=== PATIENT | female | born 1965 | race Caucasian/White ===

== ENCOUNTER 2021-10-29 06:34 | Day surgery (SDC) | payer MEDICAID, SELFPAY ==
--- NOTE | 2021-10-29 06:48 | W.ANESPRE ---
General Info Date of Service Date Performed: 10/29/21 Height: 5 ft 2 in Weight: 43.091 kg Body Mass Index (BMI): 17.4 Surgical Procedure: Operation Date: 10/29/21 08:25 Proposed Procedure Side Surgeon p Cataract Extraction with IOL Implant Left Harpal Baltazar MD Meds Allergies and Home Medications Allergies Allergy/AdvReac Type Severity Reaction Status Date / Time ether Allergy Severe Other (See Verified 10/29/21 07:17 Comment) Anesthesia gases Allergy Severe Uncoded 10/28/21 08:53 Home Medication Medication Instructions Recorded albuterol sulfate 2.5 mg/3 mL 2.5 mg inhalation QID PRN 10/27/21 (0.083 %) solution for nebulization albuterol sulfate 90 mcg/actuation 2 puff inhalation Q6H 10/27/21 aerosol inhaler budesonide-formoterol HFA 160 2 puff inhalation BID 10/27/21 mcg-4.5 mcg/actuation aerosol inhaler (Symbicort) ipratropium 0.5 mg-albuterol 3 mg 2 ml inhalation QID PRN 10/27/21 (2.5 mg base)/3 mL nebulization soln lisinopril 20 mg tablet 20 mg PO DAILY 10/27/21 magnesium 200 mg tablet 400 mg PO DAILY 10/27/21 multivitamin 1 tab PO DAILY 10/27/21 sodium chloride 1,000 mg soluble 1,000 mg PO DAILY 10/27/21 tablet loratadine 10 mg tablet 1 tab PO DAILY 10/28/21 Current Visit Medications: Current Medications Generic Name Dose Route Start Last Admin Trade Name Freq PRN Reason Stop Dose Admin Acetaminophen 1,000 mg 10/29/21 06:00 Acetaminophen 500 Mg Tab PO Q4H PRN PRN Miscellaneous Medication 0 ml 10/29/21 06:00 Prednisolone 1%, Moxifloxacin 0.5%, Nepafenac 0.1% 5ml Btl OS DIRECTED [facility] Miscellaneous Medication 0 ml 10/29/21 06:00 Tropicam./Phenyleph. (1/2.5%) 5 Ml Btl OS DIRECTED [facility] Tetracaine HCl 0 ml 10/29/21 06:00 Tetracaine 0.5% 4 Ml Btl OS DIRECTED [facility] Medical History Medical History (Updated 10/29/21 @ 07:15 by Dominguez Gardiner) Alcohol abuse Anxiety Chronic tension headache COPD (chronic obstructive pulmonary disease) Emphysema lung HLD (hyperlipidemia) HTN (hypertension) Hypochloremia Hypomagnesemia Hyponatremia Malnutrition Surgical History Surgical History (Updated 10/29/21 @ 07:16 by Dominguez Gardiner) History of surgery on right wrist Tobacco Smoking/Tobacco Use Status: Current every day Tobacco Type: cigarettes Alcohol Alcohol Intake: current Alcohol intake frequency: 3 or more drinks per day Substance Use Substance use: Never Substance use type: does not use Vital Signs and Lab Results Lab Results Blood Type / Crossmatch: No Data to Display Complete Blood Count: No Data to Display Complete Metabolic Panel: No Data to Display Liver Function Panel: No Data to Display Coagulation Panel: No Data to Display Cardiac Panel: No Data to Display Arterial Blood Gas: No Data to Display Venous Blood Gas: No Data to Display Pancreas Panel: No Data to Display Thyroid Panel: No Data to Display Infectious Disease: No Data to Display Blood Cultures: No Data to Display Toxicology Panel: No Data to Display Anesthesia Assessment and Plan Anesthesia History Personal History: No History of Anesthesia Complications Family History: No Family History of Anesthesia Complications Exercise Tolerance Exercise Tolerance: Metabolic Equivalents>4 Pertinent Negatives Pertinent Negatives: No Symptoms of GERD, No Major Cardiovascular Symptoms or Complaints and No History of CVA/TIA Cardiac & Pulmonary Exam Cardiac Exam: Normal S1/S2 Heart Sounds Pulmonary Exam: Clear Bilateral Breath Sounds and Active Dry Cough (baseline) Implantable Cardiac Device Does patient have a Pacemaker or an ICD?: No Airway Exam Known Difficult Airway: No Mallampati Class: 2 Mouth Opening: Narrow (< 3cm) Thyromental Distance: Greater than 3 cm Neck Range of Motion: Full ROM Neck Circumference: Normal Teeth Condition: Normal Dentition ASA Classification ASA Score: ASA 2 Emergency Case?: No NPO Status NPO Status: NPO Clears >2 hours, Solids >8 hours Anesthesia Plan Resuscitation Status: Full Code Anesthesia Technique: MAC Anesthesia Airway Planned: Natural Airway Monitors Used: Standard Monitors
[2021-10-29 07:20] VITALS: BMI 17.4
[2021-10-29 07:21] VITALS: BP 178/105; PULSE 88; RESP 16; TEMP 36.9; O2SAT 97
[2021-10-29] MEDS: Tropicam./Phenyleph. (1/2.5%) 5 ML BTL OS ×3 (07:31→07:41)
[2021-10-29] MEDS: Balanced Salt Soln.-PLUS 500 ML BAG (08:42)
[2021-10-29] MEDS: Lidocaine 1% Pres-Free 5 ML VIAL (08:43)
[2021-10-29] MEDS: Lidocaine 2% Jelly 6 ML SYR (08:44)
[2021-10-29] MEDS: Povidone-Iodine Ophth 30 ML BTL (08:46)
[2021-10-29] MEDS: Tetracaine 0.5% 4 ML BTL OS (08:47)
[2021-10-29 08:50] VITALS: BP 172/112; PULSE 100; RESP 16; TEMP 36.7; O2SAT 96
--- NOTE | 2021-10-29 08:52 | W.PM.DSUDISC ---
Discharge Plan Disposition Patient Disposition: HOME Condition: Good Discharge Details Attending Provider: Harpal Baltazar Primary Care Provider: Yahaira Rutherford Home Meds and New Rx's Prescriptions: No Action multivitamin Tablet 1 tab PO DAILY ipratropium-albuterol 0.5 mg-3 mg(2.5 mg base)/3 mL Solution For Nebulization 2 ml INHALATION QID PRN albuterol sulfate 2.5 mg /3 mL (0.083 %) Solution For Nebulization 2.5 mg inhalation QID PRN lisinopril 20 mg Tablet 20 mg PO DAILY albuterol sulfate 90 mcg/actuation Hfa Aerosol Inhaler 2 puff INHALATION Q6H magnesium 200 mg Tablet 400 mg PO DAILY sodium chloride 1,000 mg Tablet,Soluble 1,000 mg PO DAILY budesonide-formoterol [Symbicort] 160-4.5 mcg/actuation Hfa Aerosol Inhaler 2 puff INHALATION BID loratadine 10 mg tablet 1 tab PO DAILY Discharge Instructions Stand Alone Forms: Post-op Topical Cataract, Yasir Alvarado (DSU) Discharge Orders Discharge Orders: Discharge Order (Routine); Ordered 10/29/21 Ordered By: Harpal Baltazar DS: Diagnosis Discharge Diagnosis (1) Cortical cataract of left eye: Status: Resolved (2) Nuclear sclerotic cataract of left eye: Status: Resolved
--- NOTE | 2021-10-29 08:54 | ROE_ITS ---
Date of service: 10/29/21 Time of Service: 08:54 Operative Note Operative Note DATE OF PROCEDURE: 10/29/21 PRE-OP DIAGNOSIS: Nuclear/cortical cataract, left eye POST-OP DIAGNOSIS: same PROCEDURE: Cataract extraction using phacoemulsification with intraocular lens implant, left eye SURGEON: Harpal Baltazar ANESTHESIA TYPE: Local By Surgeon and MAC Refer to Anesthesia Record PATHOLOGY: none sent COMPLICATIONS: None Patient was transported to: same day Patient's condition: stable Implants: Luis Fernando Clareon [id number] Indications: Progressive decreased vision due to cataract, left eye Procedure Description: CATARACT SURGERY OPERATIVE REPORT PREOPERATIVE DIAGNOSIS: Nuclear/cortical cataract, left eye POSTOPERATIVE DIAGNOSIS: Same OPERATION: Cataract extraction using phacoemulsification with posterior chamber intraocular lens implant, left eye. IOL: IOL Electronics Technician/Model: Luis Fernando Clareon [id number] IOL Power: + 19.5 diopters IOL Serial Number: [id number] Optic Diameter: 6.0mm Haptic/Overall Diameter: 13.0mm PHACO INFO: Luis FernandoCopanionurion Vision System with OZil and Active Fluidics Cumulative Dispersed Energy (CDE): 6.18 seconds SURGEON: Harpal Baltazar MD, ELIECER ANESTHESIA: Monitored Anesthesia Care (MAC), with local sub-tenon's anesthetic infiltration COMPLICATIONS: None SPECIMENS: None INDICATIONS FOR PROCEDURE: The patient is a 55-year-old lady with history of diminished visual acuity in her left eye secondary to the development of nuclear and cortical cataract. She is significantly symptomatic that she desires cataract surgery and attempt to improve and maximize her vision. She does have a moderate amount of astigmatism and realizes that postoperative visual acuity will be limited by the presence of her pre-existing astigmatic state. PROCEDURE: The correct surgical eye was identified and marked as the left eye and the pupil was dilated in the preoperative area using mydriatics and cycloplegics. The dilated pupil size was 6.0 mm. Oral sedation was administered in the form of an Imprimis MKO Melt (midazolam 3mg/ketamine 25mg/ondansetron 2mg). The patient was brought to the operating room where cardiopulmonary monitoring was instituted and surgical time-out was performed, confirming the correct operative eye and IOL power. Topical anesthesia was administered and ophthalmic povidone-iodine 5% was instilled into the conjunctival fornices. Lidocaine gel was applied to the cornea and the gladys-ocular area was prepped with Betadine 10% solution and draped in the usual sterile fashion for intraocular surgery, including an aperture drape. A Tegaderm transparent film dressing was cut in half and used to cover the lashes and lid margins. Care was taken to sequester the lashes and lid margins under the Tegaderm dressing. A lid speculum was placed between the lids of the operative eye and the Luis Fernando [employer] operating microscope was maneuvered into position. Isreal scissors were then used to make a conjunctival buttonhole approximately 6mm posterior to the limbus in the inferonasal quadrant. Blunt dissection was carried out to expose bare sclera, and a blunt-tipped sub-tenon?s anesthesia cannula was introduced and passed posteriorly along the globe where non- preserved plain lidocaine was injected into posterior sub-Tenon?s space. A sideport knife was used to make a paracentesis port superior/superiortemporally. Intraocular phenylephrine/lidocaine was injected into the anterior chamber. The anterior chamber was then filled with viscoelastic. A 2.4mm keratome knife was used to create a half-thickness groove at the limbus and then to construct a three-plane near-clear corneal tunnel extending 2.0mm into clear cornea in the temporal position. . A flap was raised on the anterior capsule and capsulorhexis forceps were used to complete a continuous curvilinear capsulorhexis of 5.0 mm. Balanced salt solution was then used to perform cortical cleaving hydrodissection and nuclear hydrodelineation until the lens could be freely rotated within the capsular bag. The lens nucleus was then disassembled and removed within the capsular bag and iris plane using phacoemulsification. Residual cortical material was removed using the 45-degree angled silicone I/A tip with 0.3mm port. The posterior capsule was carefully polished to remove as much residual lens epithelial cells as safely possible. The capsular bag was then inflated and the anterior chamber deepened with viscoelastic. The lens implant described above was inserted into the capsular bag using the Luis Fernando Autonome Injector. A Kuglen hook was used to dial the IOL into position. Residual viscoelastic was then removed first from posterior to the IOL, then from the anterior chamber using the I/A handpiece. The lens implant was noted to center nicely within the capsular bag. The incisions were stromally hydrated, and the anterior chamber was reformed using BSS. Then 0.5cc of moxifloxacin 1.0mg/ml were injected into the capsular bag and anterior chamber. The incisions were checked with a Weck spear and found to be secure. Several drops of ophthalmic povidone-iodine 5% were then applied to the eye followed by two drops of Imprimis combination prednisolone/moxifloxacin/nepafenac solution. The drapes were removed and a clear plastic protective eye shield was placed over the eye. The patient was then returned to Same Day Surgery in stable condition.
[2021-10-29 09:20] VITALS: BP 165/103; PULSE 85; RESP 15; TEMP 36.7; O2SAT 98
--- NOTE | 2021-10-29 10:17 | W.ANESPOSTOP ---
Postoperative Evaluation Date, Time and Location Date Performed: 10/29/21 Time Performed: 10:17 Patient Location: Day Surgery Unit Vital Signs Most Recent Imported Vital Signs: Most Recent Vital Signs Temp Pulse Resp BP Pulse Ox 36.7 C 85 15 165/103 H 98 10/29/21 09:20 10/29/21 09:20 10/29/21 09:20 10/29/21 09:20 10/29/21 09:20 Pain Score Most Recent Pain Score: Most Recent Pain Score Pain Level 0 10/29/21 09:20 Assessment Mental Status: Awake (Alert & Oriented to Patient Baseline) Airway and Respiratory Function: Patent airway with normal (patient baseline) respiratory exam Cardiovascular Function: Hemodynamically Stable Hydration Status: Adequately Hydrated Nausea & Vomiting: No Nausea or Vomiting Pain: Pt. Denies Any Pain Peripheral Nerve Block: Other (Local by Dr. Baltazar) Postoperative Comments:: Patient seen earlier today. Denied questions and just wanted to go home. Recommended her to take her usual morning medications at home.
== END 2021-10-29 09:22 | disposition home or self-care (01) ==
PROVIDERS: PCP Nurse Practitioner; Visit Provider Ophthalmology
PROC: (CPT 66984; principal; 2021-10-29 08:15)
DX: H25.12 Age-related nuclear cataract, left eye (principal); J44.9 Chronic obstructive pulmonary disease, unspecified; I10 Essential (primary) hypertension
CPT/HCPCS: 66984; V2632

== ENCOUNTER 2021-11-12 06:19 | Day surgery (SDC) | payer MEDICAID, SELFPAY ==
[2021-11-12 06:25] VITALS: BP 191/105; PULSE 84; RESP 20; TEMP 36.7; O2SAT 97
[2021-11-12] MEDS: Tropicam./Phenyleph. (1/2.5%) 5 ML BTL OD ×3 (06:33→06:44)
--- NOTE | 2021-11-12 07:03 | W.ANESPRE ---
General Info Date of Service Date Performed: 11/12/21 Height: 5 ft 2 in Weight: 41 kg Body Mass Index (BMI): 16.5 Surgical Procedure: Operation Date: 11/12/21 07:40 Proposed Procedure Side Surgeon p Cataract Extraction with IOL Implant Right Harpal Baltazar MD Meds Allergies and Home Medications Allergies Allergy/AdvReac Type Severity Reaction Status Date / Time ether Allergy Severe Other (See Verified 11/11/21 13:55 Comment) Anesthesia gases Allergy Severe Uncoded 11/11/21 13:55 Home Medication Medication Instructions Recorded albuterol sulfate 2.5 mg/3 mL 2.5 mg inhalation QID PRN 10/27/21 (0.083 %) solution for nebulization albuterol sulfate 90 mcg/actuation 2 puff inhalation Q6H 10/27/21 aerosol inhaler budesonide-formoterol HFA 160 2 puff inhalation BID 10/27/21 mcg-4.5 mcg/actuation aerosol inhaler (Symbicort) ipratropium 0.5 mg-albuterol 3 mg 2 ml inhalation QID PRN 10/27/21 (2.5 mg base)/3 mL nebulization soln lisinopril 20 mg tablet 20 mg PO DAILY 10/27/21 magnesium 200 mg tablet 400 mg PO DAILY 10/27/21 multivitamin 1 tab PO DAILY 10/27/21 sodium chloride 1,000 mg soluble 1,000 mg PO DAILY 10/27/21 tablet loratadine 10 mg tablet 1 tab PO DAILY 10/28/21 Current Visit Medications: Current Medications Generic Name Dose Route Start Last Admin Trade Name Freq PRN Reason Stop Dose Admin Acetaminophen 1,000 mg 11/12/21 06:00 Acetaminophen 500 Mg Tab PO Q4H PRN PRN Miscellaneous Medication 0 ml 11/12/21 06:00 Prednisolone 1%, Moxifloxacin 0.5%, Nepafenac 0.1% 5ml Btl OD DIRECTED [facility] Miscellaneous Medication 0 ml 11/12/21 06:00 11/12/21 06:44 Tropicam./Phenyleph. (1/2.5%) 5 Ml Btl OD 1 drp DIRECTED [facility] Administration Tetracaine HCl 0 ml 11/12/21 06:00 Tetracaine 0.5% 4 Ml Btl OD DIRECTED [facility] PFSH Active Problems Active Problems: Problem Status Onset Code Cortical cataract of left eye H26.9 Nuclear sclerotic cataract of left eye H25.12 Medical History Medical History Alcohol abuse Anxiety Chronic tension headache COPD (chronic obstructive pulmonary disease) Emphysema lung HLD (hyperlipidemia) HTN (hypertension) Hypochloremia Hypomagnesemia Hyponatremia Malnutrition Surgical History Surgical History (Updated 11/12/21 @ 06:34 by Jojo Oscar) History of cataract surgery History of surgery on right wrist Tobacco Smoking/Tobacco Use Status: Current every day Tobacco Type: cigarettes Alcohol Alcohol Intake: current Alcohol intake frequency: 3 or more drinks per day Substance Use Substance use: Never Substance use type: does not use Vital Signs and Lab Results Vital Signs Most Recent Vital Signs in EMR: Most Recent Vital Signs Temp Pulse Resp BP Pulse Ox 36.7 C 84 20 191/105 H 97 11/12/21 06:25 11/12/21 06:25 11/12/21 06:25 11/12/21 06:25 11/12/21 06:25 Lab Results Blood Type / Crossmatch: No Data to Display Complete Blood Count: No Data to Display Complete Metabolic Panel: No Data to Display Liver Function Panel: No Data to Display Coagulation Panel: No Data to Display Cardiac Panel: No Data to Display Arterial Blood Gas: No Data to Display Venous Blood Gas: No Data to Display Pancreas Panel: No Data to Display Thyroid Panel: No Data to Display Infectious Disease: No Data to Display Blood Cultures: No Data to Display Toxicology Panel: No Data to Display Anesthesia Assessment and Plan Anesthesia History Personal History: No History of Anesthesia Complications Family History: No Family History of Anesthesia Complications Exercise Tolerance Exercise Tolerance: Metabolic Equivalents>4 Pertinent Negatives Pertinent Negatives: No Symptoms of GERD and No Major Pulmonary Symptoms or Complaints Cardiac & Pulmonary Exam Cardiac Exam: Normal S1/S2 Heart Sounds Pulmonary Exam: Clear Bilateral Breath Sounds Implantable Cardiac Device Does patient have a Pacemaker or an ICD?: No Airway Exam Known Difficult Airway: No Mallampati Class: 2 Mouth Opening: Narrow (< 3cm) Thyromental Distance: Greater than 3 cm Neck Range of Motion: Full ROM Neck Circumference: Normal Teeth Condition: Normal Dentition ASA Classification ASA Score: ASA 3 Emergency Case?: No NPO Status NPO Status: NPO Clears >2 hours, Solids >8 hours Anesthesia Plan Resuscitation Status: Full Code Anesthesia Technique: MAC Anesthesia Airway Planned: Natural Airway Monitors Used: Standard Monitors
[2021-11-12 07:07] VITALS: BMI 16.5
[2021-11-12] MEDS: Balanced Salt Soln.-PLUS 500 ML BAG (07:35)
[2021-11-12] MEDS: Povidone-Iodine Ophth 30 ML BTL (07:37)
[2021-11-12] MEDS: Duovisc Viscoelastic System EACH 1 EACH (07:37)
[2021-11-12] MEDS: Lidocaine 2% Jelly 6 ML SYR (07:38)
[2021-11-12] MEDS: Tetracaine 0.5% 4 ML BTL OD (07:39)
[2021-11-12 07:55] VITALS: BP 164/105; PULSE 91; RESP 18; TEMP 37; O2SAT 98
--- NOTE | 2021-11-12 07:55 | W.PM.DSUDISC ---
Discharge Plan Disposition Patient Disposition: HOME Condition: Good Discharge Details Attending Provider: Harpal Baltazar Primary Care Provider: Yahaira Rutherford Home Meds and New Rx's Prescriptions: No Action multivitamin Tablet 1 tab PO DAILY ipratropium-albuterol 0.5 mg-3 mg(2.5 mg base)/3 mL Solution For Nebulization 2 ml INHALATION QID PRN albuterol sulfate 2.5 mg /3 mL (0.083 %) Solution For Nebulization 2.5 mg inhalation QID PRN lisinopril 20 mg Tablet 20 mg PO DAILY albuterol sulfate 90 mcg/actuation Hfa Aerosol Inhaler 2 puff INHALATION Q6H magnesium 200 mg Tablet 400 mg PO DAILY sodium chloride 1,000 mg Tablet,Soluble 1,000 mg PO DAILY budesonide-formoterol [Symbicort] 160-4.5 mcg/actuation Hfa Aerosol Inhaler 2 puff INHALATION BID loratadine 10 mg tablet 1 tab PO DAILY Discharge Instructions Stand Alone Forms: Post-op Topical Cataract, Yasir Alvarado (DSU) Discharge Orders Discharge Orders: Discharge Order (Routine); Ordered 11/12/21 Ordered By: Harpal Baltazar DS: Diagnosis Discharge Diagnosis (1) Cortical cataract of right eye: Status: Resolved (2) Nuclear sclerotic cataract of right eye: Status: Resolved
--- NOTE | 2021-11-12 07:56 | W.PM.OP ---
Date of service: 11/12/21 Time of Service: 07:56 Operative Note Operative Note DATE OF PROCEDURE: 11/12/21 PRE-OP DIAGNOSIS: Nuclear/cortical cataract, right eye POST-OP DIAGNOSIS: same PROCEDURE: Cataract extraction using phacoemulsification with intraocular lens implant, right eye SURGEON: Harpal Baltazar ANESTHESIA TYPE: Local By Surgeon and MAC Refer to Anesthesia Record ESTIMATED BLOOD LOSS: 0 PATHOLOGY: none sent COMPLICATIONS: None Patient was transported to: same day Patient's condition: stable Implants: Luis Fernando Clareon [id number] Indications: Progressive decreased vision due to cataract, right eye Procedure Description: CATARACT SURGERY OPERATIVE REPORT PREOPERATIVE DIAGNOSIS: Nuclear/cortical cataract, right eye POSTOPERATIVE DIAGNOSIS: Same OPERATION: Cataract extraction using phacoemulsification with posterior chamber intraocular lens implant, right eye. IOL: IOL Medical Dosimetrist/Model: Luis Fernando Clareon [id number] IOL Power: + 19.0 diopters IOL Serial Number: [id number] Optic Diameter: 6.0mm Haptic/Overall Diameter: 13.0mm PHACO INFO: Luis FernandoGroove Biopharmaurion Vision System with OZil and Active Fluidics Cumulative Dispersed Energy (CDE): 5.55 seconds SURGEON: Harpal Baltazar MD, ELIECER ANESTHESIA: Monitored Anesthesia Care (MAC), with local sub-tenon's anesthetic infiltration COMPLICATIONS: None SPECIMENS: None INDICATIONS FOR PROCEDURE: Patient is a 55-year-old lady with history of diminished visual acuity in her right eye secondary to development of nuclear/cortical cataract. She is significantly symptomatic that she desires cataract surgery and attempt to improve and maximize her vision. She has already undergone cataract surgery in the left eye and is doing well postoperatively. She now presents for cataract surgery in the right eye. PROCEDURE: The correct surgical eye was identified and marked as the right eye and the pupil was dilated in the preoperative area using mydriatics and cycloplegics. The dilated pupil size was [] mm. Oral sedation was administered in the form of an Imprimis MKO Melt (midazolam 3mg/ketamine 25mg/ondansetron 2mg). The patient was brought to the operating room where cardiopulmonary monitoring was instituted and surgical time-out was performed, confirming the correct operative eye and IOL power. Topical anesthesia was administered and ophthalmic povidone-iodine 5% was instilled into the conjunctival fornices. Lidocaine gel was applied to the cornea and the gladys-ocular area was prepped with Betadine 10% solution and draped in the usual sterile fashion for intraocular surgery, including an aperture drape. A Tegaderm transparent film dressing was cut in half and used to cover the lashes and lid margins. Care was taken to sequester the lashes and lid margins under the Tegaderm dressing. A lid speculum was placed between the lids of the operative eye and the Eugenie-Melo operating microscope was maneuvered into position. Isreal scissors were then used to make a conjunctival buttonhole approximately 6mm posterior to the limbus in the inferonasal quadrant. Blunt dissection was carried out to expose bare sclera, and a blunt-tipped sub-tenon?s anesthesia cannula was introduced and passed posteriorly along the globe where non-preserved plain lidocaine was injected into posterior sub-Tenon?s space. A sideport knife was used to make a paracentesis port inferiortemporally. Intraocular phenylephrine/lidocaine was injected into the anterior chamber. The anterior chamber was then filled with viscoelastic. A keratome knife was used to construct a two--plane near-clear corneal tunnel extending 2.0mm into clear cornea in the superiortemporal position.. A flap was raised on the anterior capsule and capsulorhexis forceps were used to complete a continuous curvilinear capsulorhexis of 5.0 mm. Balanced salt solution was then used to perform cortical cleaving hydrodissection and nuclear hydrodelineation until the lens could be freely rotated within the capsular bag. The lens nucleus was then disassembled and removed within the capsular bag and iris plane using phacoemulsification. Residual cortical material was removed using the I/A handpiece. The posterior capsule was carefully polished to remove as much residual lens epithelial cells as safely possible. The capsular bag was then inflated and the anterior chamber deepened with viscoelastic. The lens implant described above was inserted into the capsular bag using the Luis Fernando Autonome Injector. A Kuglen hook was used to dial the IOL into position. Residual viscoelastic was then removed first from posterior to the IOL, then from the anterior chamber using the I/A handpiece. The lens implant was noted to center nicely within the capsular bag. The incisions were stromally hydrated, and the anterior chamber was reformed using BSS. Then 0.5cc of moxifloxacin 1.0mg/ml were injected into the capsular bag and anterior chamber. The incisions were checked with a Weck spear and found to be secure. Several drops of ophthalmic povidone-iodine 5% were then applied to the eye followed by two drops of Imprimis combination prednisolone/moxifloxacin/nepafenac solution. The drapes were removed and a clear plastic protective eye shield was placed over the eye. The patient was then returned to Same Day Surgery in stable condition.
[2021-11-12 08:15] VITALS: BP 169/107; PULSE 85; RESP 18; TEMP 36.8; O2SAT 99
--- NOTE | 2021-11-12 08:41 | W.ANESPOSTOP ---
Postoperative Evaluation Date, Time and Location Date Performed: 11/12/21 Time Performed: 07:53 Patient Location: Day Surgery Unit Vital Signs Most Recent Imported Vital Signs: Most Recent Vital Signs Temp Pulse Resp BP Pulse Ox 36.8 C 85 18 169/107 H 99 11/12/21 08:15 11/12/21 08:15 11/12/21 08:15 11/12/21 08:15 11/12/21 08:15 Pain Score Most Recent Pain Score: Most Recent Pain Score Pain Level 0 11/12/21 07:55 Assessment Mental Status: Awake (Alert & Oriented to Patient Baseline) Airway and Respiratory Function: Patent airway with normal (patient baseline) respiratory exam Cardiovascular Function: Hemodynamically Stable Hydration Status: Adequately Hydrated Nausea & Vomiting: No Nausea or Vomiting Pain: Pt. Denies Any Pain Peripheral Nerve Block: Patient did not receive a nerve block
== END 2021-11-12 08:15 | disposition home or self-care (01) ==
LOC: SUR 06:20
PROVIDERS: PCP Nurse Practitioner; Visit Provider Ophthalmology
PROC: (CPT 66984; principal; 2021-11-12 07:30)
DX: H25.11 Age-related nuclear cataract, right eye (principal); J43.9 Emphysema, unspecified; F10.10 Alcohol abuse, uncomplicated
CPT/HCPCS: 66984; V2632